=== PATIENT | male | born 1980 | race Caucasian/White ===

== ENCOUNTER 2023-09-12 18:50 | Emergency (ER) | payer SELFPAY ==
[~2023-09-12] VITALS: Ht 165.1 cm; Wt 64.0 kg
[2023-09-12 19:15] VITALS: O2SAT 97
[2023-09-12 19:58] LABS: BASOPHILS % 0.6 % (0.0-2.0); HEMOGLOBIN. 13.9 g/dL (14.0-18.0); LYMPHOCYTES % 21.6 % (20.0-50.0); MEAN CORPUSCULAR HEMOGLOBIN 30.5 pg (28.0-32.0); MEAN CORPUSCULAR VOLUME 89.8 fL (80.0-94.0); MEAN PLATELET VOLUME 7.7 fl (7.4-10.4); MONOCYTES % 7.5 % (2.0-8.0); NEUTROPHILS % 68.3 % (40.0-76.0); PLATELET 254 x1000/uL (130-400); RED BLOOD CELL COUNT 4.56 mill/uL (4.7-6.1); RED CELL DISTRIBUTION WIDTH 13.1 % (11.6-14.6)
[2023-09-12 20:09] LABS: PROTHROMBIN TIME 10.8 sec (9.6-11.0)
[2023-09-12 20:16] LABS: ALANINE AMINOTRANSFERASE 11 IU/L (10-49); ALBUMIN 4.7 g/dL (3.2-4.8); ASPARTATE AMINOTRANSFERASE 14 IU/L (<34); BILIRUBIN TOTAL 0.3 mg/dL (0.1-1.0); CALCIUM 9.1 mg/dL (8.7-10.4); CARBON DIOXIDE 27 mEq/L (21-32); CHLORIDE 103 mEq/L (98-107); CREATININE 0.8 mg/dL (0.6-1.3); GLUCOSE 228 mg/dL (70-105); POTASSIUM 3.7 mEq/L (3.5-5.1); PROTEIN TOTAL 8.2 g/dL (6.0-8.3); SODIUM 137 mEq/L (136-145); UREA NITROGEN BLOOD 11 mg/dL (9-23)
[2023-09-12] MEDS ORDERED: IBUP-1525 MT (20:57)
[2023-09-12] MEDS ORDERED: CEPH500C2 MT (20:57)
[2023-09-12] MEDS ORDERED: TOPUD MT (20:57)
[2023-09-12] MEDS ORDERED: IBUPROFEN 800MG TABLET PO ONE (21:15)
[2023-09-12] MEDS: TETANUS, DIPHTHERIA, PERTUSSIS VAC/PF 0.5ML (>10YR OLD) IM ONE (21:43)
[2023-09-12 21:44] VITALS: TEMP 98.1
[2023-09-12] MEDS: ACETAMINOPHEN 325MG TABLET PO ONE (21:44)
[2023-09-12 21:45] VITALS: BP 150/81; PULSE 77; RESP 16
[2023-09-12] MEDS: IBUPROFEN 400MG TABLET PO NR (21:45)
== END 2023-09-12 21:48 | disposition home or self-care (01) ==
LOC: ER 18:50
DX: S02.2XXA Fracture of nasal bones, initial encounter for closed fracture (principal); S02.85XA Fracture of orbit, unspecified, initial encounter for closed fracture; X58.XXXA Exposure to other specified factors, initial encounter; Y93.89 Activity, other specified; Y92.89 Other specified places as the place of occurrence of the external cause; Y99.8 Other external cause status
CPT/HCPCS: 80053; 85025; 85610; 36415; 70450; 70486; 90715; 90471; 99285; Z7610